=== PATIENT | male | born 1970 | race Caucasian/White ===

== ENCOUNTER 2019-11-05 13:32 | Outpatient (CLI) | payer OTHER, SELFPAY ==
--- NOTE | ~2019-11-05 | XR_ITS ---
XR hip LT min 2V 11/05/2019 14:12 Indication: Left hip pain Procedure: 2 views left hip Comparison: No prior studies for comparison. Findings: No acute fracture or traumatic malalignment. No significant soft tissue abnormality. No rad iopaque foreign bodies. No significant joint space narrowing. Impression: 1: No significant bone or joint abnormality. Reviewed, dictated and finalized at location B. OPERATIVE MANAGER Impression: 1: No significant bone or joint abnormality.
[2019-11-05 14:52] LABS: Add Urine Microscopic? YES; Amorphous Sediment Urine Few; Appearance Urine Clear (Clear); Bacteria Urine Trace /hpf; Bilirubin Urine Negative (Negative); Blood Urine Negative (Negative); Color Urine Yellow (Yellow); Glucose Urine UA Negative (Negative); Ketones Urine Negative (Negative); Leukocyte Esterase Ur Negative LEU/UL (Negative); Mucus Urine Few /lpf; Nitrate Urine Negative (Negative); Protein Urine Negative (Negative); RBC Urine 0-2 /hpf (0-2); Specific Grav Ur 1.025 (1.001-1.035); Squamous Epithelial Cell Urine Rare /hpf (Few); Urobilinogen Urine Negative mg/dL (<2.0); WBC Urine 0-3 /hpf
[2019-11-05 15:33] LABS: Prostate Specific Antigen 0.7 ng/mL (< OR = 4.0)
== END 2019-11-05 13:33 | disposition home or self-care (01) ==
PROVIDERS: PCP Internal Medicine Infectious Disease; Visit Provider Internal Medicine Infectious Disease
DX: N39.43 Post-void dribbling (principal); Z12.5 Encounter for screening for malignant neoplasm of prostate
CPT/HCPCS: 36415; 73502; 81001; 84153; 87086; G0103

== ENCOUNTER 2019-11-06 15:45 | Outpatient (CLI) | payer OTHER, SELFPAY ==
--- NOTE | ~2019-11-06 | US_ITS ---
EXAMINATION: US scrotum doppler EXAM DATE: 11/06/2019 16:40 INDICATION: Left testicular pain. Reportedly history of undescended testicle. TECHNIQUE: Multiple grayscale and Doppler images of the testicles and scrotum were obtained bilateral ly. There is no prior study for comparison. FINDINGS: Right testicle measures 4.9 x 5.1 x 2.4 cm and is morphologically normal. Low resistance Doppler eileen w confirmed. The epididymis is unremarkable. There is no hydrocele or varicocele. Left testicle measures 1.5 x 1.4 x 1.2 cm, which is small in size but otherwise morphologically ana lilia l. Low resistance Doppler flow confirmed. The epididymis is unremarkable. There is small to moderate -sized varicocele. IMPRESSION: 1. Small to moderate-sized left varicocele. 2. Small left testicle, common finding in patients with history of undescended testicle. Reviewed, dictated and finalized at location A. D DEVELOPMENT MANAGER
== END 2019-11-06 15:46 | disposition home or self-care (01) ==
LOC: ANHIMG 15:46
PROVIDERS: PCP Internal Medicine Infectious Disease
DX: N39.43 Post-void dribbling (principal); N50.82 Scrotal pain; I86.1 Scrotal varices
CPT/HCPCS: 76870; 93976

== ENCOUNTER 2019-11-20 17:32 | Outpatient (CLI) | payer OTHER, SELFPAY ==
--- NOTE | ~2019-11-20 | MR_ITS ---
EXAMINATION: MR lumbar spine [facility] EXAM DATE: 11/20/2019 18:27 INDICATION: Left-sided sciatica. TECHNIQUE: Multi-sequential, multiplanar MR images of the lumbar spine were obtained without contrast . Sagittal T1, T2, T2 fat saturation images. Axial T2 weighted images. There is no prior study for comparison. FINDINGS: Vertebral body and disc heights are well-maintained. The conus medullaris terminates at the L1/2 leve l and has normal signal intensity and morphology. There are no suspicious marrow signal abnormalitie s. Paraspinal soft tissue is unremarkable. Level by level evaluation: T12-L1: Disc does not extend beyond the endplate margin. Facet arthropathy: None. Neural foraminal stenosis: No stenosis. Central canal stenosis: No stenosis. L1-L2: Disc does not extend beyond the endplate margin. Facet arthropathy: Mild. Neural foraminal stenosis: No stenosis. Central canal stenosis: No stenosis. L2-L3: Disc does not extend beyond the endplate margin. Facet arthropathy: Mild. Neural foraminal stenosis: No stenosis. Central canal stenosis: No stenosis. L3-L4: There is a mild diffuse disc bulge. Facet arthropathy: Mild. Neural foraminal stenosis: Mild left. Central canal stenosis: No stenosis. L4-L5: There is a mild diffuse disc bulge. Facet arthropathy: Mild to moderate right, mild left. Neural foraminal stenosis: Mild to moderate right, mild left. Central canal stenosis: No stenosis. L5-S1: Disc does not extend beyond the endplate margin. Facet arthropathy: Mild. Neural foraminal stenosis: No stenosis. Central canal stenosis: No stenosis. IMPRESSION: 1. Mild lumbar spondylosis. Reviewed, dictated and finalized at location A. IMPRESSION: 1. Mild lumbar spondylosis.
== END 2019-11-20 17:33 | disposition home or self-care (01) ==
LOC: ANHIMG 17:34
PROVIDERS: PCP Internal Medicine Infectious Disease; Visit Provider Internal Medicine Infectious Disease
DX: M54.32 Sciatica, left side (principal); M47.896 Other spondylosis, lumbar region
CPT/HCPCS: 72148

== ENCOUNTER 2020-03-31 07:47 | Outpatient (CLI) | payer OTHER, SELFPAY ==
[2020-03-31 08:17] LABS: Basophils Percent Auto 0.3 % (0.2-1.2); Eosinophils Absolute Auto 0.1 K/mm3 (0-0.3); Eosinophils Percent Auto 1.6 % (0-4.4); Hematocrit 41.1 % (42.0-52.0); Hemoglobin 14.1 g/dL (14.0-18.0); Immature Granulocyte Absolute 0.03 K/mm3 (0.00-0.031); Immature Granulocyte Percent A 0.5 % (0-0.5); Lymphocytes Absolute Auto 2.64 K/mm3 (0.9-3.2); Lymphocytes Percent Auto 41.4 % (18.3-44.2); Mean Corpuscular HGB Conc 34.3 g/dl (32-36); Mean Corpuscular Hemoglobin 32.4 pg (26-34); Mean Corpuscular Volume 94.5 fl (80-100); Mean Platelet Volume 10.5 fl (7.4-10.4); Monocytes Absolute Auto 0.8 K/mm3 (0.1-0.6); Monocytes Percent Auto 12.4 % (2.6-8.5); Neutrophils Absolute Auto 2.8 K/mm3 (1.3-6.7); Neutrophils Percent Auto 43.8 % (45.5-73.1); Platelet Count Result 166 k/mm3 (150-375); Red Blood Count 4.35 M/mm3 (4.6-6.20); Red Cell Distribution Width 12.6 % (11.5-14.5); White Blood Count 6.4 K/mm3 (4.5-10.0)
[2020-03-31 08:30] LABS: Alanine Aminotransferase 26 U/L (4-50); Albumin Level 4.1 g/dL (3.5-5.1); Alkaline Phosphatase 86 U/L (38-126); Anion Gap 10.4 mmol/L (7-16); Aspartate Amino Transferase 28 U/L (17-59); Bilirubin,Total 0.3 mg/dL (0.2-1.3); Blood Urea Nitrogen 21 mg/dL (9-20); Calcium 8.8 mg/dL (8.4-10.2); Carbon Dioxide 26 mmol/L (22-30); Chloride 104 mmol/L (98-107); Cholesterol 176 mg/dL (0-200); Estimated Glomerular Filt Rate > 60; Glucose 112 mg/dL (75-110); HDL Direct 30 mg/dL; Potassium 4.4 mmol/L (3.4-5.0); Sodium 136 mmol/L (137-145); Triglycerides 194 mg/dL (<150)
[2020-03-31 08:40] LABS: LDL Cholesterol Direct 110 mg/dL
[2020-03-31 12:13] LABS: Hemoglobin A1C 5.7 % (<5.7)
[2020-04-03 22:10] LABS: Absolute CD4 Count 1692 cells/uL (490-1740); Lymphocytes, Absolute 2887 cells/uL (850-3900); Percent CD4 Cells 59 % (30-61)
[2020-04-08 16:55] LABS: HIV 1 RNA PCR <1.30 Log cps/mL; HIV 1 RNA PCR <20 Copies/mL
== END 2020-03-31 07:48 | disposition home or self-care (01) ==
PROVIDERS: PCP Internal Medicine Infectious Disease; Visit Provider Internal Medicine Infectious Disease
DX: E11.9 Type 2 diabetes mellitus without complications (principal); E78.2 Mixed hyperlipidemia; E03.9 Hypothyroidism, unspecified; Z21 Asymptomatic human immunodeficiency virus [HIV] infection status
CPT/HCPCS: 36415; 80053; 80061; 83036; 84443; 85025; 86361; 87536

== ENCOUNTER 2020-09-04 09:52 | Outpatient (CLI) | payer OTHER, SELFPAY ==
[2020-09-04 10:42] LABS: Basophils Percent Auto 0.2 % (0.2-1.2); Eosinophils Absolute Auto 0.1 K/mm3 (0-0.3); Eosinophils Percent Auto 0.7 % (0-4.4); Hematocrit 43.1 % (42.0-52.0); Hemoglobin 14.8 g/dL (14.0-18.0); Immature Granulocyte Absolute 0.06 K/mm3 (0.00-0.031); Immature Granulocyte Percent A 0.7 % (0-0.5); Lymphocytes Absolute Auto 3.85 K/mm3 (0.9-3.2); Lymphocytes Percent Auto 43.3 % (18.3-44.2); Mean Corpuscular HGB Conc 34.3 g/dl (32-36); Mean Corpuscular Hemoglobin 32.4 pg (26-34); Mean Corpuscular Volume 94.3 fl (80-100); Mean Platelet Volume 10.4 fl (7.4-10.4); Monocytes Percent Auto 11.7 % (2.6-8.5); Neutrophils Absolute Auto 3.9 K/mm3 (1.3-6.7); Neutrophils Percent Auto 43.4 % (45.5-73.1); Platelet Count Result 177 k/mm3 (150-375); Red Blood Count 4.57 M/mm3 (4.6-6.20); Red Cell Distribution Width 12.7 % (11.5-14.5); White Blood Count 8.9 K/mm3 (4.5-10.0)
[2020-09-04 10:53] LABS: Hemoglobin A1C 5.9 % (<5.7)
[2020-09-04 10:59] LABS: Alanine Aminotransferase 49 U/L (4-50); Albumin Level 4.2 g/dL (3.5-5.1); Alkaline Phosphatase 78 U/L (38-126); Anion Gap 6 mmol/L (8-16); Aspartate Amino Transferase 35 U/L (17-59); Bilirubin,Total 0.6 mg/dL (0.2-1.3); Blood Urea Nitrogen 21 mg/dL (9-20); Calcium 8.9 mg/dL (8.4-10.2); Carbon Dioxide 27 mmol/L (22-30); Chloride 104 mmol/L (98-107); Cholesterol 222 mg/dL (0-200); Estimated Glomerular Filt Rate > 60; Glucose 105 mg/dL (75-110); HDL Direct 35 mg/dL; Potassium 4.4 mmol/L (3.4-5.0); Sodium 137 mmol/L (137-145); Triglycerides 177 mg/dL (<150)
[2020-09-04 11:11] LABS: LDL Cholesterol Direct 159 mg/dL
[2020-09-04 11:40] LABS: HIV 1/2 Ab P24 Ag 163
[2020-09-04 11:42] LABS: HIV 1/2 Ab P24 Ag Result Reactive (Negative)
[2020-09-04 11:59] LABS: Creatinine Urine 74.4 mg/dL
[2020-09-04 13:07] LABS: MALB Creatinine Ratio < 8.1 mg/g (0-30); Microalbumin Urine Random < 6.0 mg/L (0-16.7)
[2020-09-06 17:38] LABS: HIV 1 2 Ag Ab 4th Gen w Rflxs Reactive (Non-reactive); HIV 1 Ab Chg Test Yes; HIV 1 Antibody Positive (Negative); HIV 2 Ab Chg Test Yes; HIV 2 Antibody Negative (Negative)
[2020-09-09 11:57] LABS: Absolute CD4 Count 2467 cells/uL (490-1740); Lymphocytes, Absolute 3935 cells/uL (850-3900); Percent CD4 Cells 63 % (30-61)
[2020-09-10 11:50] LABS: Testosterone Free 81.6 pg/mL (35.0-155.0); Testosterone Total 486 ng/dL (250-1100)
== END 2020-09-04 09:53 | disposition home or self-care (01) ==
PROVIDERS: PCP Internal Medicine Infectious Disease; Visit Provider Internal Medicine Infectious Disease
DX: E11.9 Type 2 diabetes mellitus without complications (principal); E78.2 Mixed hyperlipidemia; Z00.00 Encounter for general adult medical examination without abnormal findings
CPT/HCPCS: 36415; 80053; 80061; 82043; 83036; 84402; 84403; 84443; 85025; 86361; 86701; 86702; 86703; 87389; G0432

== ENCOUNTER 2024-04-02 14:33 | Outpatient (CLI) | payer BC, SELFPAY ==
--- NOTE | ~2024-04-02 | MR_ITS ---
MRI of the cervical spine Clinical History: Radiculopathy Technique: Axial T2-weighted and gradient images, and sagittal T1-weighted, T2-weighted, and STIR robert ges were acquired. Findings: There is no fracture or subluxation of the cervical spine. Vertebral bodies maintain normal height and alignment. No bone marrow signal abnormality seen. At C2-C3, there is no significant disc bulge or herniation. No spinal canal stenosis, cord compressio n, or neural foraminal narrowing. C3-C4, there is minimal disc osteophyte complex. No spinal canal stenosis, cord compression, or neura l foraminal narrowing. At C4-C5, there is minimal disc osteophyte complex. No spinal canal stenosis, cord compression, or ne ural foraminal narrowing. At C5-C6, there is minimal disc osteophyte complex. No spinal canal stenosis, cord compression, or ne ural foraminal narrowing. At C6-C7, there is no disc bulge or herniation. No spinal canal stenosis, cord compression, or neural foraminal narrowing. No abnormal signal seen in the spinal cord. Paravertebral soft tissues are unremarkable. No preverteb ral soft tissue swelling. Impression: Minimal degenerative spondylitic changes, as above. Reviewed, dictated and finalized at location . Impression: Minimal degenerative spondylitic changes, as above.
--- NOTE | ~2024-04-02 | MR_ITS ---
MRI of the lumbar spine Clinical History: Back pain Technique: Axial T2-weighted images, and sagittal T1-weighted, T2-weighted, and T2 fat-sat images wer e acquired. COMPARISON: 11/20/2019 Findings: There is no fracture or subluxation of the lumbar spine. Vertebral bodies maintain normal h eight and alignment. No bone marrow signal abnormality seen. At L1-L2, there is no disc bulge or herniation. There is moderate facet arthropathy. No central canal stenosis or neural foraminal narrowing. At L2-L3, there is minimal disc bulge with mild to moderate facet arthropathy. No central canal steno sis or neural foraminal narrowing. L3-L4, there is minimal disc bulge with moderate facet arthropathy. No central canal stenosis. There is mild to moderate right neural foraminal narrowing. Left neural foramen preserved. At L4-L5, there is minimal disc bulge with mild to moderate facet arthropathy. No central canal steno sis. There is mild to moderate bilateral neural foraminal narrowing. At L5-S1, there is no disc bulge or herniation. There is mild to moderate facet arthropathy. No centr al canal stenosis or neural foraminal narrowing. Paravertebral soft tissues are unremarkable. Impression: Mild degenerative spondylosis overall, as detailed above. Reviewed, dictated and finalized at location . Impression: Mild degenerative spondylosis overall, as detailed above.
== END 2024-04-02 14:34 ==
LOC: GOSHIMG 14:34
PROVIDERS: PCP Internal Medicine Infectious Disease; Visit Provider Internal Medicine Infectious Disease
DX: G95.9 Disease of spinal cord, unspecified (principal); M54.12 Radiculopathy, cervical region
CPT/HCPCS: 72141; 72148

== ENCOUNTER 2025-01-10 01:26 | Day surgery (SDC) | payer BC, SELFPAY ==
[2024-12-26 13:37] VITALS: BMI 35.2
--- OUTSIDE RECORDS SUMMARY | 2025-01-10 01:30 | XMS_ITS | Encounter Summary ---
Author Organization [facility] Address [address] [place] [address] Phone Care Team Providers Care Security Representative Name Role Phone Felton Larry Abbott MD Primary Care Provider [phone] Faheem Saxena DO Unavailable [phone] Samuel Up DPM, Bryce Unavailable [phone] Bianca Bartholomew MD Unavailable [phone] Encounter Details Date Type Department Care Team (Late st Contact Info) Description 06/11/2021 Orders Only [facility] [address] [place] [address] Scanning, Provider Social History Tobacco Use Types Packs/Day Years Used Date Smoking Tobacco: Every Day Cigarettes 1.5 30 Smokeless Tobacco: Former Comments:Smoking History Pac ks/day: Pack and a half a day. Alcohol Use Standard Drinks/Week Comments No 0 (1 standard drink = 0.6 oz pur e alcohol) PHQ-2 Answer Date Recorded PHQ-2 Total Score (If total score is 3 or more points, staff should administer the PHQ-9) 0 04/27/2021 Sex and Gender Information Value Date Recorded Sex Assigned at Not on file Legal Sex Male 4:45 PM RFID ANALYST Gender Identity Male 04/07/2021 11:57 AM CDT Sexual Orientation Pedraza 08/31/2020 11 :52 AM RFID ANALYST documented as of this encounter Plan of Treatment Not on file documented as of this encounter Procedures Procedure Name Priority Date/Time Associated Diagnosis Comments SCAN - RADIOLOGY/IMAGING 06/11/2021 documented in this encounter Results * SCAN - RADIOLOGY/IMAGING (06/11/2021) Anatomical Region Laterality Modality Other us Provider Scanning Final Result documented in this encounter Visit Diagnoses Not on filedocumented in this encounter Additional Health Concerns Infection Onset Date Last Indicated Resolved Time COVID: Suspected 07/12/2024 07/12/2024 07/12/2024 10:25 AM RFID ANALYST documented as of this encounter Care Teams Security Representative Relationship Specialty Start Date End Date Larry Ya MD [address] [place] [address] PCP - General 12/03/16 Faheem Saxena DO [address] [place] [address] Consulting Physician Gastroenterology 02/26/19 Bryce Baker Jr., DPMagui [address] [place] [address] Referring Physician 02/26/19 Bianca Bartholomew MD [id number] [address] Consulting Physician Critical Care Med 04/03/20 documented as of this encounter
--- OUTSIDE RECORDS SUMMARY | 2025-01-10 01:30 | XMS_ITS | Referral Summary ---
Author Organization [facility] Address [address] [place] [address] Care Team Providers Care Shipping Assistant Name Role Phone Larry Ya MD Primary Care Provider [phone] Faheem Saxena DO Unavailable [phone] Up, SABRINA, Bryce Unavailable [phone] Bianca Bartholomew MD Unavailable [phone] Encounters Date Type Department Care Team Description 01/01/2025 Telephone [facility] [address] [place] [phone] Larry Ya MD Med Refill 11/16/2024 Results Follow-Up [facility] [address] [facility] [address] [place] [phone] Larry Ya MD Nicotine dependence, cigarettes, uncomplicated 11/12/2024 4:09 PM CDT - 11/12/2024 11:59 PM CDT Hospital Encounter [facility] [address] [place] [address] Nicotine dependence, cigarettes, uncomplicated Discharge Disposition: Discharge to home or self care 11/09/2024 Telephone [facility] [address] [place] [address] Cathi Rodriguez RN 10/18/2024 9:30 AM LEAD CASHIER Office Visit [facility] [place] [facility] [address] [place] [phone] Larry Ya MD Colon cancer screening (Primary Dx); Type 2 diabetes mellitus without complication, without long-term current use of insulin (HCC); Cough, unspecified type; Gastroesophageal reflux disease, unspecified whether esophagitis present; Nicotine dependence, cigarettes, uncomplicated; Prostate cancer screening; Routine physical examination; HIV positive, asymptomatic (HCC) from Last 3 Months Allergies Active Allergy Reactions Criticality Noted Date Comments Delight Oil Unknown Cefaclor Rash Reaction: Rash, , Reaction: rash, , , , , Clarithromycin Shortness of breath,Other (See comments),Rash Medium 09/27/2013 Reaction: Trouble Breathing, , Reaction: Trouble breathing, , Reaction: Anaphylaxis, , , , Clindamycin Rash Reaction: rash, , Reaction: rash, , , , Codeine Hives Medium 07/19/2024 Erythromycin Shortness of breath,Other (See comments),Anaphylaxis High 09/27/2013 Reaction: Trouble Breathing, , Reaction: trouble breathing, , Reaction: Anaphylaxis, , , , Latex Rash Reaction: rash, , , Reaction: Rash, , , Loratadine Tetracycline Rash,Other (See comments) Reaction: Rash, , Reaction: rash, , Reaction: Rash, , , Tetracyclines Medications fluticasone (FLONASE) 50 mcg/actuation nasal spray USE 1 SPRAY INTO EACH NOSTRIL TWICE A DAY 16 spray 3 014 Active cetirizine (ZyrTEC) 10 mg tablet take 1 tablet (10MG) by oral route every day 0 012 Active cyanocobalamin (vitamin B-12) 1,000 mcg tablet take 1 by Oral route one daily 0 012 Active b complex vitamins (VITAMINS B COMPLEX) capsule take 1 by Oral route once 0 0 017 Active melatonin tablet Take by mouth Active ascorbic acid (VITAMIN C) 1,000 mg tablet Take 1 tablet (1,000 mg total) by mouth daily Active magnesium oxide 200 mg magnesium tablet Active ferrous sulfate ER 324 mg (65 mg iron) EC tablet Active omeprazole (PriLOSEC) 20 mg capsule Take 1 capsule (20 mg total) by mouth daily 90 capsule Active emtricitabine-ten ofovir disoproxil fumerate (TRUVADA) 200-300 mg per tablet Take 1 tablet by mouth daily 30 tablet 11 Active celecoxib (CeleBREX) 200 mg capsule TAKE 1 CAPSULE BY MOUTH EVERY DAY 30 capsule Active ondansetron (ZOFRAN) 4 mg tablet Take 1 tablet (4 mg total) by mouth 3 (three) times a day as needed for nausea or vomiting 21 tablet Active cyclobenzaprine (FLEXERIL) 10 mg tablet Take 1 po qd prn 90 tablet 1 Active sertraline (ZOLOFT) 100 mg tablet TAKE ONE TABLET BY MOUTH TWICE A DAY 180 tablet 1 Active albuterol HFA (PROVENTIL HFA,VENTOLIN HFA,PROAIR HFA) 90 mcg/actuation inhalerIndication s:Upper respiratory tract infection, unspecified type,Acute cough Inhale 2 puffs 4 (four) times a day 1 each Active Additional Information Patient taking differently:2 puff inhalation4 times daily PRN, Reported on 10/18/2024 ammonium lactate (LAC-HYDRIN) 12 % lotionIndications :Dry Skin Apply 1-2 times daily to groin as needed. 225 g Active Isentress 400 mg tablet TAKE 1 TABLET (400 MG TOTAL) BY MOUTH 2 TIMES A DAY 60 tablet 2 Active ipratropium (ATROVENT) 21 mcg (0.03 %) nasal spray 2 SPRAY INTRANASALLY TWICE A DAY FOR POSTERIOR RHINORRHEA FOR 1 MONTH ADMINISTER INTO EACH NOSTRIL Active semaglutide (Ozempic) 0.25 mg or 0.5 mg (2 mg/3 mL) pen injector injectionIndicati ons:type 2 diabetes mellitus Inject 0.5 mg under the skin every 7 days 3 mL 1 025 Active busPIRone (BUSPAR) 30 mg tabletIndications :Anxiety TAKE ONE TABLET BY MOUTH TWICE A DAY 180 tablet 1 025 Active liothyronine (CYTOMEL) 25 mcg tabletIndications :Acquired hypothyroidism TAKE ONE TABLET BY MOUTH EVERY DAY 90 tablet 025 Active levothyroxine (Synthroid) 25 mcg tabletIndications :Acquired hypothyroidism Take 1 tablet (25 mcg total) by mouth daily 90 tablet 1 025 Active levothyroxine (Synthroid) 25 mcg tabletIndications :Acquired hypothyroidism Take 1 tablet (25 mcg total) by mouth daily 90 tablet 1 024 2024 Discontinued(R eorder) liothyronine (CYTOMEL) 25 mcg tablet TAKE ONE TABLET BY MOUTH ONCE DAILY 90 tablet 024 2024 Discontinued Active Problems Problem Noted Date Diagnosed Date Routine physical examination 10/18/2024 Assessment & Plan (10/18/2024 10:35 AM LEAD CASHIER): IMMUNIZATIONS WERE REVIEWED EYE EXAM AND DENTAL UPTODATE TOBACCO ABUSE LOWE DOSE LUNG CT ORDERED DM TYPE 2 GOAL HBAIC IS UNDER 6.5 PERCENT INCREASE OZEMPIC TO 0.5 MG ONCE A WEEK PRIMARY HYPOTRHYORIDISM : NL TSH ASYMTPOMATIC HIV NL CD 4 COUND AND VIRAL LOAD UNDETECTABLE RECTLA EXAM GUAIAIC NEG Acute bronchitis and bronchiolitis 08/15/2024 Assessment & Plan (08/15/2024 7:31 PM LEAD CASHIER): Rsv neg Flu and coviod neg Cxr is neg except for possible acuter bornchitis sinus x ray neg Start tapring dosage of starting at 20 mg po Qday prednsione Penile rash 07/24/2024 Assessment & Plan (07/24/2024 4:54 PM LEAD CASHIER): PAINFUL DDX INCULDE PRIMARY HERPES SIMPLEX ALLERGIC REACTION FROM CODIENE OR LEVAQUIN SWABS WERE RAKEN TODAY VALTREX 1 GM PO TID FOR 7 DAYS TOPICAL NYSTATIN POWEDER FOR THE GROIN Acute cough 07/12/2024 Assessment & Plan (07/12/2024 3:12 PM LEAD CASHIER): Exam is NL Acute bronchitis is suspected Do tussin with codiene one tsp po tid for 7 days 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 FAILED PT 3. FAILED NSAIDS ON FLEXERIL PRN DECREASED FORENSIC NURSE IN BOTH HANDS NUMBNESS OF THE LEFT ARM ARRANGE MRI OF THE C SPINE Lumbar radiculopathy, chronic 03/29/2024 Assessment & Plan (03/29/2024 1:21 PM CDT): WITH GAIT ISSUES S/P FALL FAILED NSAIDS ARRANGEM RI OF THE L SPINE WITHOUT CONTRAST COVID-19 virus detected 08/08/2020 Routine physical examination 08/12/2017 Assessment & Plan (04/03/2020 3:11 PM CDT): Immunizations were reviewed / meds were reviewed / blood work was discussed / skin was assessed / rectal exam done/ hbaic is good / await results of viral load and cd 4 count / Type 2 diabetes mellitus wit hout complication, without long-term current use of insulin 04/12/2017 Assessment & Plan (04/11/2024 4:38 PM CDT): NL DILATED EYE EXAM NL FOOT EXAM NL MONO FILAMENT TEST GOAL HBAIC IS UNDER 7 PERCENT URINE FOR MICROALBUMIN NEXT VISIT HIV positive, asymptomatic 04/12/2017 Assessment & Plan (04/11/2024 4:38 PM CDT): HIV VIRAL LOAD UNDETECTABLE NL CD 4 COUND ABOVE 500 IMMUNIZATIONS REVIEWED AND UPDATED Trigger finger of left hand 04/12/2017 Acquired hypothyroidism 04/12/2017 Assessment & Plan (04/11/2024 4:39 PM CDT): NL TSH NO CHANGES IN SYNTHROID MADE Smokes tobacco daily 05/16/2015 Overview (12/09/2016): Current every day smoker Adiposity 01/19/2014 Overview (12/08/2016): OBESITY NOS Obstructive sleep apnea syndrome 01/19/2014 Overview (12/08/2016): SONU (obstructive sleep apnea) Generalized anxiety disorder 01/19/2014 Overview (12/08/2016): GENERALIZED ANXIETY DIS Depression 01/19/2014 Overview (12/10/2016): Depression Atopic rhinitis 01/19/2014 Overview (12/10/2016): ALLERGIC RHINITIS NOS Multiple-type hyperlipidemia 01/19/2014 Overview (12/10/2016): MIXED HYPERLIPIDEMIA Assessment & Plan (04/11/2024 4:37 PM CDT): FLP AND LDL REVIEWED GOAL LDL IS UNDER 100 FOR SECONDARY PREVNETION Carpal tunnel syndrome 01/19/2014 Overview (12/10/2016): CARPAL TUNNEL SYNDROME Snoring 01/19/2014 Overview (12/10/2016): Snoring Anxiety 01/19/2014 Overview (12/10/2016): Anxiety Gastroesophageal reflux disease 01/19/2014 Overview (12/10/2016): GERD (gastroesophageal reflux disease) Nicotine dependence 12/17/2011 Immunizations Immunization Administration Dates Next Due Influenza, Quadrivalent, Emperatriz l Culture-based MDCK, Preservative Free, Antibiotic Free, Intramuscular 06/13/2022,06/29/2021 Influenza, Quadrivalent, Spl it, Intramuscular 08/12/2017 Influenza, Quadrivalent, Spl it, Preservative Free, Intramuscular 06/01/2023 Influenza, Split 07/24/2013,05/19/2010 Influenza, Trivalent, Cell C ulture-based MDCK, Preservative Free, Antibiotic Free, Intramuscular 05/28/2024,06/13/2022,06/29/2021 Influenza, Trivalent, IM (MDV) 05/20/2016,2013 Influenza, Trivalent, Preser vative Free, Intramuscular 09/01/2015 Influenza, Unspecified 06/05/2020 MMR 10/03/2018 PPD TEST 08/20/2020,12/15/2011 Pfizer SARS-CoV-2 Monovalent Vaccination (12+ Yrs) PURPLE 08/21/2021,10/03/2020 Pfizer Sars-Cov-2 Bivalent V accination (12+ YRS) 05/28/2024 Pneumococcal Polysaccharide PPV23 12/15/2011 Td, adsorbed 08/20/2020 Tdap 11/09/2021,05/20/2010 Social History Tobacco Use Types Packs/Day Years [...] more points, staff should administer the PHQ-9) 1 10/18/2024 Personal Safety Answer Date Recorded Have you ever been in or are you currently in a harmful physical or emotional relationship or is someone making you feel afraid or unsafe? Denies 04/05/2024 Sex and Gender Information Value Date Recorded Sex Assigned at Not on file Legal Sex Male 4:45 PM LEAD CASHIER Gender Identity Male 04/07/2021 11:57 AM CDT Sexual Orientation Pedraza 08/31/2020 11 :52 AM LEAD CASHIER Last Filed Vital Signs Vital Sign Reading Time Taken Comments Blood Pressure 128/78 10/18/2024 9:49 AM LEAD CASHIER Pulse 78 10/18/2024 9:49 AM LEAD CASHIER Temperature 36.2 C (97.1 F) 10/18/2024 9:49 AM LEAD CASHIER Respiratory Rate 16 10/18/2024 9:49 AM LEAD CASHIER Oxygen Saturation 96% 10/18/2024 9:49 AM LEAD CASHIER Inhaled Oxygen Concentration - - Weight 100.7 kg (222 lb) 11/12/2024 4:54 PM CDT Height 167.6 cm (5' 6 ) 11/12/2024 4:54 PM CDT Body Mass Index 35.83 11/12/2024 4:54 PM CDT Plan of Treatment Not on file Procedures Procedure Name Priority Date/Time Associated Diagnosis Comments CT LUNG CANCER SCREENING Schedule Routine, Read Routine (OP Routine) 11/12/2024 4:53 PM CDT Nicotine dependence, cigarettes, uncomplicated COMPREHENSIVE METABOLIC PANEL Routine 10/10/2024 9:35 AM LEAD CASHIER Type 2 diabetes mellitus without complication, without long-term current use of insulin (HCC) HEMOGLOBIN A1C Routine 10/10/2024 9:35 AM LEAD CASHIER Type 2 diabetes mellitus without complication, without long-term current use of insulin (HCC) LIPID PANEL Routine 10/10/2024 9:35 AM LEAD CASHIER Multiple-type hyperlipidemia ALBUMIN CREATININE RATIO, URINE Routine 05/16/2023 9:19 AM CDT Type 2 diabetes mellitus without complication, without long-term current use of insulin (HCC) PSA SCREEN Routine 11/15/2022 8:32 AM CDT Routine physical examination Prostate cancer screening HM DIABETES EYE EXAM Routine 09/12/2019 9:28 AM LEAD CASHIER from Last 3 Months or Most Recently Relevant to Health Maintenance Results * CT Lung Cancer Screening (11/12/2024 4:53 PM CDT) Anatomical Region Laterality Modality Chest N/A Computed Tomogra phy 11/15/2024 8:17 AM CDT Narrative 11/15/2024 8:25 AM CDT EXAM DESCRIPTION: CT LUNG CANCER SCREENING REASON FOR STUDY: Screening CT of the chest in a current smoker with a 45 pack year smoking history. Additional history: None. TECHNIQUE: Low dose CT scan of the chest was performed without intravenous contrast using helical scanning technique. The exam extends from the lung apices through the lung bases. Automatic exposure control was used as a dose optimization technique. NOTE: This study was performed for the specific purposes of lung cancer screening and is not an alternative to diagnostic chest CT. The sensitivity for detection of solid visceral lesions is diminished without the use of intravenous contrast. RADIATION DOSE: CT dose index volume (CTDIvol) = 2.36 mGy COMPARISON: CT chest 06/11/2021 FINDINGS: SMOKING RELATED LUNG DISEASE: Minimal pulmonary emphysema. LUNG NODULES: Noncalcified 3 mm nodule in the left lower lobe (image 153) may be within a subsegmental airway but is unchanged from 2020. PLEURAE: No pneumothorax or pleural effusion. MEDIASTINUM/PRETTY: No mediastinal or hilar lymphadenopathy within the limitations of a noncontrast exam. HEART: Heart size is normal with no pericardial effusion. CORONARY ARTERY CALCIFICATION: Mild VASCULATURE: No thoracic aortic aneurysm. AXILLAE: No lymphadenopathy. CHEST WALL: No masses. No subcutaneous air. HARDWARE/LINES/TUBES: None. UPPER ABDOMEN: No significant abnormality. MUSCULOSKELETAL: Moderate thoracic spondylosis. IMPRESSION: Noncalcified 3 mm nodule in the left lower lobe may be within a subsegmental airway but is unchanged from 2020. Minimal pulmonary emphysema. Lung-RADS category 2: Benign appearance or behavior. Recommendation: Low dose Screening CT of chest in 12 months. THIS IS AN ELECTRONICALLY VERIFIED FINAL REPORT 11/15/2024 8:25 AM - Electronically signed by Aj Otto M.D. LB: USMAN Report ID: [id number] Reading Location: [place] [address] Procedure Note Aj Otto MD - 11/15/2024 EXAM DESCRIPTION: CT LUNG CANCER SCREENING REASON FOR STUDY: Screening CT of the chest in a current smoker with a45 pack year smoking history. Additional history: None. TECHNIQUE: Low dose CT scan of the chest was performed without intravenous contrast using helical scanning technique. The exam extends from the lung apices through the lung bases. Automatic exposure control was used as adose optimization technique. NOTE: This study was performed for the specific purposes of lung cancer screening and is not an alternative to diagnostic chest CT. Thesensitivity for detection of solid visceral lesions is diminished without the use of intravenous contrast. RADIATION DOSE: CT dose index volume (CTDIvol) = 2.36 mGy COMPARISON: CT chest 06/11/2021 FINDINGS: SMOKING RELATED LUNG DISEASE: Minimal pulmonary emphysema. LUNG NODULES: Noncalcified 3 mm nodule in the left lower lobe ([id number]) may be within a subsegmental airway but is unchanged from 202. PLEURAE: No pneumothorax or pleural effusion. MEDIASTINUM/PRETTY: No mediastinal or hilar lymphadenopathy within the limitations of a noncontrast exam. HEART: Heart size is normal with no pericardial effusion. CORONARY ARTERY CALCIFICATION: Mild VASCULATURE: No thoracic aortic aneurysm. AXILLAE: No lymphadenopathy. CHEST WALL: No masses. No subcutaneous air. HARDWARE/LINES/TUBES: None. UPPER ABDOMEN: No significant abnormality. MUSCULOSKELETAL: Moderate thoracic spondylosis. IMPRESSION: Noncalcified 3 mm nodule in the left lower lobe may be within asubsegmental airway but is unchanged from 2020. Minimal pulmonary emphysema. Lung-RADS category 2: Benign appearance or behavior. Recommendation: Low dose Screening CT of chest in 12 months. THIS IS AN ELECTRONICALLY VERIFIED FINAL REPORT 11/15/2024 8:25 AM - Electronically signed by Aj Otto M.D. LB: LB Report ID: [id number] Reading Location: [place] [address] Larry Ya MD IMG CT PROCEDURES Final Re sult * (ABNORMAL) Hemoglobin A1c (10/10/2024 9:35 AM LEAD CASHIER) Hgb A1C 6.0(H) <5.7 % of total Hgb [facility] Comment: For someone without known diabetes, a hemoglobin A1c value between 5.7% and 6.4% is consistent with prediabetes and should be confirmed with a follow-up test. For someone with known diabetes, a value <7% indicates that their diabetes is well controlled. A1c targets should be individualized based on duration of diabetes, age, comorbid conditions, and other considerations. This assay result is consistent with an increased risk of diabetes. Currently, no consensus exists regarding use of hemoglobin A1c for diagnosis of diabetes for children. Blood 10/10/2024 9:35 AM LEAD CASHIER 10/10/2024 9:36 AM LEAD CASHIER Narrative [facility] - 10/12/2024 8:21 AM LEAD CASHIER FASTING:YES FASTING: YES Larry Ya MD LAB BLOOD ORDERABLES Final Result [facility] [address] [place] [address] * (ABNORMAL) Lipid panel (10/10/2024 9:35 AM LEAD CASHIER) Cholesterol 217(H) <200 mg/dL [facility] HDL 36(L) > OR = 40 mg/dL [facility] Triglycerides 134 <150 mg/dL [facility] LDL 155(H) mg/dL (calc) [facility] Comment: Reference range: <100 Desirable range <100 mg/dL for primary prevention; <70 mg/dL for patients with CHD or diabetic patients with > or = 2 CHD risk factors. LDL-C is now calculated using the Jorge calculation, which is a validated novel method providing better accuracy than the Friedewald equation in the estimation of LDL-C. Casper SS et al. FRANCISCA. 2013;310(19): 7053-7926 (http://education.Ginio.com/faq/PQZ782) Chol/HDL ratio 6.0(H) <5.0 (calc) [facility] Non-HDL, (LDL+VLDL) 181(H) <130 mg/dL (calc) [facility] Comment: For patients with diabetes plus 1 major ASCVD risk factor, treating to a non-HDL-C goal of <100 mg/dL (LDL-C of <70 mg/dL) is considered a therapeutic option. Blood 10/10/2024 9:35 AM LEAD CASHIER 10/10/2024 9:36 AM LEAD CASHIER Narrative [facility] - 10/12/2024 8:21 AM LEAD CASHIER FASTING:YES FASTING: YES Larry Ya MD LAB BLOOD ORDERABLES Final Result [facility] [address] [place] [phone] * (ABNORMAL) Comprehensive metabolic panel (10/10/2024 9:35 AM LEAD CASHIER) Glucose 111(H) 65 - 99 mg/dL [facility] Comment: Fasting reference interval For someone without known diabetes, a glucose value between 100 and 125 mg/dL is consistent with prediabetes and should be confirmed with a follow-up test. BUN 19 7 - 25 mg/dL [facility] Creatinine 1.05 0.70 - 1.30 mg/dL [facility] eGFR 84 > OR = 60 mL/min/1.7 3m2 [facility] BUN/creat ratio SEE NOTE: 6 - 22 (calc) [facility] Comment: Not Reported: BUN and Creatinine are within reference range. Sodium 140 135 - 146 mmol/L [facility] Potassium, pl 4.4 3.5 - 5.3 mmol/L [facility] Chloride 104 98 - 110 mmol/L [facility] CO2 30 20 - 32 mmol/L [facility] Calcium 8.9 8.6 - 10.3 mg/dL [facility] Protein, sr 6.7 6.1 - 8.1 g/dL [facility] Albumin 4.5 3.6 - 5.1 g/dL [facility] GLOBULIN 2.2 1.9 - 3.7 g/dL (calc) [facility] Alb/glob ratio 2.0 1.0 - 2.5 (calc) [facility] Bilirubin, total 0.5 0.2 - 1.2 mg/dL [facility] Alk phos 78 35 - 144 U/L [facility] AST 23 10 - 35 U/L [facility] ALT (SGPT) 31 9 - 46 U/L [facility] Blood 10/10/2024 9:35 AM LEAD CASHIER 10/10/2024 9:36 AM LEAD CASHIER Narrative [facility] - 10/12/2024 8:21 AM LEAD CASHIER FASTING:YES FASTING: YES Larry Ya MD LAB BLOOD ORDERABLES Final Result [facility] [address] [place] [address] * Albumin Creatinine Ratio, Urine (05/16/2023 9:19 AM CDT) Creatinine, ur 110 20 - 320 mg/dL [facility] Microalbumin, ur <0.2 See Note: mg/dL [facility] Comment: Reference Range: Reference Range Not established Microalbumin/creat ratio NOTE <30 mcg/mg creat [facility] Comment: NOTE: The urine albumin value is less than 0.2 mg/dL therefore we are unable to calculate excretion and/or creatinine ratio. The ADA defines abnormalities in albumin excretion as follows: Albuminuria Category Result (mcg/mg creatinine) Normal to Mildly increased <30 Moderately increased 30-299 Severely increased > OR = 300 The ADA recommends that at least two of three specimens collected within a 3-6 month period be abnormal before considering a patient to be within a diagnostic category. Urine 05/16/2023 9:19 AM CDT 05/16/2023 9:20 AM CDT Narrative [facility] - 05/18/2023 1:37 PM CDT FASTING:YES FASTING: YES Larry Ya MD LAB URINE ORDERABLES Final Result [facility] [address] [place] [address] * PSA screen (11/15/2022 8:32 AM CDT) Pathologist [facility] PSA 0.53 < OR = 4.00 ng/mL [facility] Comment: The total PSA value from this assay system is standardized against the WHO standard. The test result will be approximately 20% lower when compared to the equimolar-standardized total PSA (Tae Yolanda). Comparison of serial PSA results should be interpreted with this fact in mind. This test was performed using the Siemens chemiluminescent method. Values obtained from different assay methods cannot be used interchangeably. PSA levels, regardless of value, should not be interpreted as absolute evidence of the presence or absence of disease. Blood 11/15/2022 8:32 AM CDT 11/15/2022 8:34 AM CDT Narrative [facility] - 11/16/2022 9:44 PM CDT FASTING:YES FASTING: YES Larry Ya MD LAB BLOOD ORDERABLES Final Result [facility] [address] [phone] * DIABETES EYE EXAM (09/12/2019 9:28 AM LEAD CASHIER) SCRIBED DIABETIC DILATED EYE EXAM Normal Historical Provider HEALTH MAINTENANCE Final Result from Last 3 Months or Most Recently Relevant to Health Maintenance Insurance [facility] PPO PPO ANTHEM ACCESS CHOICE WORKERS COMPENSATION GENERIC Member Subscriber Plan / Payer (Ef fective 2023-Present) Name:Luis Adrian Relation to Subscriber:Self Name:Luis Adrian Payer ID:[id number] Group ID:Not on file Type:WORKERS COMPENSATION Address: [place] [id number] Care Teams Shipping Assistant Relationship Specialty Start Date End Date Larry Ya MD [address] [place] [address] PCP - General 12/03/16 Faheem Saxena DO [address] [place] [address] Consulting Physician Gastroenterology 02/26/19 Bryce Baker Jr., DPM [address] [place] [address] Referring Physician 02/26/19 Bianca Bartholomew MD [address] [facility] [address] [place], [place] [id number] Consulting Physician Critical Care Med 04/03/20
--- OUTSIDE RECORDS SUMMARY | 2025-01-10 01:30 | XMS_ITS | Encounter Summary ---
Author Organization [facility] Address [address] [place] [address] Phone Care Team Providers Care Box Closing Machine Operator Name Role Phone Larry Ya MD Primary Care Provider [phone] Faheem Saxena DO Unavailable [phone] Samuel Up DPM, Gabriel Unavailable Bianca Bartholomew MD Unavailable Encounter Details Date Type Department Care Team (Late Contact Info) Description 11/15/2017 Orders Only [facility] [address] [place] [address] Larry Ya MD [address] [place] [id number] Social History Tobacco Use Types Packs/Day Years Used Date Smoking Tobacco: Every Day Smokeless Tobacco: Former Comments:Smoking History Pac ks/day: 1 Packs Alcohol Use Standard Drinks/Week Comments No 0 (1 standard drink = 0.6 oz pur e alcohol) Sex and Gender Information Value Date Recorded Sex Assigned at Not on file Legal Sex Male 4:45 PM TRUCK BODY BUILDER APPRENTICE Gender Identity Male 04/07/2021 11:57 AM CDT Sexual Orientation Pedraza 08/31/2020 11 :52 AM TRUCK BODY BUILDER APPRENTICE documented as of this encounter Plan of Treatment Not on file documented as of this encounter Procedures Procedure Name Priority Date/Time Associated Diagnosis Comments SCAN - LABS 11/15/2017 10:24 AM CDT documented in this encounter Results * SCAN - LABS (11/15/2017 10:24 AM CDT) Larry Ya MD Final Resu lt documented in this encounter Visit Diagnoses Not on filedocumented in this encounter Additional Health Concerns Infection Onset Date Last Indicated Resolved Time COVID: Suspected 06/19/2020 06/19/2020 07/03/2020 3:06 AM CDT COVID: Suspected 07/12/2024 07/12/2024 07/12/2024 10:25 AM TRUCK BODY BUILDER APPRENTICE documented as of this encounter Care Teams Box Closing Machine Operator Relationship Specialty Start Date End Date Larry Ya MD [address] [place] [address] PCP - General 12/03/16 Faheem Saxena DO [address] [place] [address] Consulting Physician Gastroenterology 02/26/19 Bryce Baker Jr., DPMagui [address] [place] [address] Referring Physician 02/26/19 Bianca Bartholomew MD [address] [facility] [address] [place], [place] [address] Consulting Physician Critical Care Med 04/03/20 documented as of this encounter
--- OUTSIDE RECORDS SUMMARY | 2025-01-10 01:30 | XMS_ITS | Encounter Summary ---
Author Organization [facility] Address [address] [place] [address] Phone Care Team Providers Care Guide Cruise Name Role Phone Felton Larry Abbott MD Primary Care Provider [phone] Faheem Saxena DO Unavailable [phone] Samuel Up DPM, Gabriel Unavailable [phone] Bianca Bartholomew MD Unavailable [phone] Encounter Details Date Type Department Care Team (Late st Contact Info) Description 09/04/2020 Orders Only [facility] [address] [place] [address] Scanning, Provider Social History Tobacco Use Types Packs/Day Years Used Date Smoking Tobacco: Every Day Smokeless Tobacco: Former Comments:Smoking History Pac ks/day: 1 Packs Alcohol Use Standard Drinks/Week Comments No 0 (1 standard drink = 0.6 oz pur e alcohol) Sex and Gender Information Value Date Recorded Sex Assigned at Not on file Legal Sex Male 4:45 PM SCREEN ROOM OPERATOR Gender Identity Male 04/07/2021 11:57 AM CDT Sexual Orientation Pedraza 08/31/2020 11 :52 AM SCREEN ROOM OPERATOR documented as of this encounter Plan of Treatment Not on file documented as of this encounter Procedures Procedure Name Priority Date/Time Associated Diagnosis Comments SCAN - LABS 09/04/2020 documented in this encounter Results * SCAN - LABS (09/04/2020) us Provider Scanning Final Result documented in this encounter Visit Diagnoses Not on filedocumented in this encounter Additional Health Concerns Infection Onset Date Last Indicated Resolved Time COVID: Suspected 07/12/2024 07/12/2024 07/12/2024 10:25 AM SCREEN ROOM OPERATOR documented as of this encounter Care Teams Guide Cruise Relationship Specialty Start Date End Date Larry Ya MD [address] [place] [address] PCP - General 12/03/16 Faheem Saxena DO [address] [place] [address] Consulting Physician Gastroenterology 02/26/19 Bryce Baker Jr., DPM [address] [place] [address] Referring Physician 02/26/19 Bianca Bartholomew MD [address] [address] Consulting Physician Critical Care Med 04/03/20 documented as of this encounter
--- OUTSIDE RECORDS SUMMARY | 2025-01-10 01:30 | XMS_ITS | Encounter Summary ---
Author Organization [facility] Address [address] [place] [address] Phone Care Team Providers Care Percolator Operator Name Role Phone Felton, Larry Abbott MD Primary Care Provider [phone] Faheem Saxena DO Unavailable [phone] Samuel Up DPM, Gabriel Unavailable [phone] Bianca Bartholomew MD Unavailable [phone] Encounter Details Date Type Department Care Team (Late st Contact Info) Description 02/25/2017 Orders Only [facility] [address] [place] [address] Salome Mcgarry LPN Social History Tobacco Use Types Packs/Day Years Used Date Smoking Tobacco: Former Cigarettes Q uit: 09/05/2015 Comments:Smoking History Pac ks/day: 1 Packs Alcohol Use Standard Drinks/Week Comments No 0 (1 standard drink = 0.6 oz pur e alcohol) Sex and Gender Information Value Date Recorded Sex Assigned at Not on file Legal Sex Male 4:45 PM GAS FITTER APPRENTICE Gender Identity Male 04/07/2021 11:57 AM CDT Sexual Orientation Pedraza 08/31/2020 11 :52 AM GAS FITTER APPRENTICE documented as of this encounter Ordered Prescriptions Prescription Sig Dispense Quantity Refills Last Filled Start Date End Date celecoxib (CeleBREX) 200 mg capsule Take 1 capsule (200 mg total) by mouth daily. 30 capsule 5 02/25/2017 7 documented in this encounter Plan of Treatment Not on file documented as of this encounter Visit Diagnoses Not on filedocumented in this encounter Discontinued Medications Medication Sig Discontinue Reason Start Date End Da te meloxicam (MOBIC) 7.5 mg tablet TAKE ONE TABLET BY MOUTH TWICE A DAY Therapy completed 08/15/2014 02/25/2017 documented as of this encounter Additional Health Concerns Infection Onset Date Last Indicated Resolved Time COVID: Suspected 06/19/2020 06/19/2020 07/03/2020 3:06 AM CDT COVID: Suspected 07/12/2024 07/12/2024 07/12/2024 10:25 AM GAS FITTER APPRENTICE documented as of this encounter Care Teams Percolator Operator Relationship Specialty Start Date End Date Larry Ya MD [address] [place] [address] PCP - General 12/03/16 Faheem Saxena DO [address] [place] [address] Consulting Physician Gastroenterology 02/26/19 Bryce Baker Jr., DPMagui [address] [address] Referring Physician 02/26/19 Bianca Bartholomew MD [address] [address] Consulting Physician Critical Care Med 04/03/20 documented as of this encounter
--- OUTSIDE RECORDS SUMMARY | 2025-01-10 01:30 | XMS_ITS | Clinical Summary ---
Author Organization [facility] Address [address] [address] Phone Care Team Providers Care Dairy Nutritionist Name Role Phone Larry Ya MD Primary Care Provider [phone] Social History Tobacco Use Types Packs/Day Years Used Date Smoking Tobacco: Never Assessed Sex and Gender Information Value Date Recorded Sex Assigned at Not on file Legal Sex Male 12:28 AM CDT Gender Identity Not on file Sexual Orientation Not on file Plan of Treatment Health Maintenance Due Date Last Done Comments Hepatitis C Virus (HCV) Screening 1969 TdaP Immunization 1969 Hepatitis B Immunization (1 of 3 - 19+ 3-dose series) 02/18/1988 Cologuard 2019 Immunochemical Fecal Occult Blood 2019 Pneumococcal Immunization (5 0+ years) (1 of 1 - PCV) 2019 Zoster Immunization (1 of 2) 2019 PSA Discussion 02/18/2024 Influenza Immunization (#1) 2024 SARS-COV-2 Immunization ( - 2023-25 season) 2024 Colonoscopy 12/11/2028 12/11/2018 Colorectal Cancer Screening 12/11/2028 Respiratory Syncytial Virus (RSV) Immunization (Adult) (1 - 1-dose 75+ series) 02/18/2044 12/11/2018 Meningococcal Immunization (ACWY) Aged Out No longer eligible based on patient's age to complete this topic Pneumococcal Immunization Combined Aged Out No longer eligible based on patient's age to complete this topic Rotavirus Immunization Aged Out No lo nger eligible based on patient's age to complete this topic Procedures Procedure Name Priority Date/Time Associated Diagnosis Comments COLONOSCOPY Routine 12/11/2018 from Last 3 Months or Most Recently Relevant to Health Maintenance Results * COLONOSCOPY (12/11/2018) Faheem Jameson Hemanth DO PROCEDURE/MINOR SURGICAL ORDERA BLES Final Result from Last 3 Months or Most Recently Relevant to Health Maintenance Insurance [facility] Care Teams Dairy Nutritionist Relationship Specialty Start Date End Date Lrary Ya MD [address] [place] [address] PCP - General Internal Medicine 12/14/18
--- OUTSIDE RECORDS SUMMARY | 2025-01-10 01:30 | XMS_ITS | Clinical Summary ---
Author Organization [facility] Address [address] [place] [address] Care Team Providers Care Orthopedic Coder Name Role Phone Felton Larry Abbott MD Primary Care Provider [phone] Faheem Saxena DO Unavailable [phone] Samuel Up, Bryce BENNETT Unavailable Bianca Bartholomew MD Unavailable [phone] Allergies Active Allergy Reactions Criticality Noted Date Comments [place] Oil Unknown Cefaclor Rash Reaction: Rash, , [...] (10MG) by oral route every day 0 Active cyanocobalamin (vitamin B-12) 1,000 mcg tablet take 1 by Oral route one daily 0 Active b complex vitamins (VITAMINS B COMPLEX) [...] CAPSULE BY MOUTH EVERY DAY 30 capsule 11 Active ondansetron (ZOFRAN) 4 mg tablet Take [...] FOR 1 MONTH ADMINISTER INTO EACH NOSTRIL 025 Active semaglutide (Ozempic) 0.25 mg or 0.5 [...] 10/18/2024 Assessment & Plan (10/18/2024 10:35 AM ASPHALT STILL OPERATOR): IMMUNIZATIONS WERE REVIEWED EYE EXAM AND DENTAL UPTODATE TOBACCO ABUSE LOWE DOSE LUNG CT ORDERED DM TYPE 2 GOAL HBAIC IS UNDER 6.5 PERCENT INCREASE OZEMPIC TO 0.5 MG ONCE A WEEK PRIMARY HYPOTRHYORIDISM : NL TSH ASYMTPOMATIC HIV NL CD 4 COUND AND VIRAL LOAD UNDETECTABLE RECTLA EXAM GUAIAIC NEG Acute bronchitis and bronchiolitis 08/15/2024 Assessment & Plan (08/15/2024 7:31 PM ASPHALT STILL OPERATOR): Rsv neg Flu and coviod neg Cxr is neg except for possible acuter bornchitis sinus x ray neg Start tapring dosage of starting at 20 mg po Qday prednsione Penile rash 07/24/2024 Assessment & Plan (07/24/2024 4:54 PM ASPHALT STILL OPERATOR): PAINFUL DDX INCULDE PRIMARY HERPES SIMPLEX ALLERGIC REACTION FROM CODIENE OR LEVAQUIN SWABS WERE RAKEN TODAY VALTREX 1 GM PO TID FOR 7 DAYS TOPICAL NYSTATIN POWEDER FOR THE GROIN Acute cough 07/12/2024 Assessment & Plan (07/12/2024 3:12 PM ASPHALT STILL OPERATOR): Exam is NL Acute bronchitis is suspected Do tussin with codiene one tsp po tid for 7 days 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 FAILED PT 3. 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 NUMBNESS OF THE LEFT [...] GERD (gastroesophageal reflux disease) Nicotine dependence 12/17/2011 Encounters Date Type Department Care Team Description 01/01/2025 Telephone [facility] 1 [facility] [address] [place] [address] Larry Ya MD Med Refill 11/16/2024 Results Follow-Up [facility] 1 [facility] [address] [place] [address] Larry Ya MD Nicotine dependence, cigarettes, uncomplicated 11/12/2024 4:09 PM CDT - 11/12/2024 11:59 PM CDT Hospital Encounter [facility] 1 [place] [address] Nicotine dependence, cigarettes, uncomplicated Discharge Disposition: Discharge to home or self care 11/09/[address] [address] Cathi Rodriguez RN 10/18/2024 9:30 AM ASPHALT STILL OPERATOR Office Visit [facility] [address] [address] Larry Ya MD Colon cancer screening (Primary Dx); Type 2 diabetes mellitus without complication, without long-term current use of insulin (HCC); Cough, unspecified type; Gastroesophageal reflux disease, unspecified whether esophagitis present; Nicotine dependence, cigarettes, uncomplicated; Prostate cancer screening; Routine physical examination; HIV positive, asymptomatic (HCC) from Last 3 Months Immunizations Immunization Administration Dates Next Due Influenza, [...] PPV23 12/15/2011 Td, adsorbed 08/20/2020 Tdap 11/09/2021,05/20/2010 Surgical History Surgery Date Site/Laterality Comments TONSILLECTOMY 1998 Tonsillectomy KNEE ARTHROSCOPY 2005 Arthroscopy knee HERNIA REPAIR 2007 Hernia repair APPENDECTOMY 2001 Appendectomy OTHER SURGICAL HISTORY 2006 eyelid lipoma: lipomectomy OTHER SURGICAL HISTORY 2005 tibial plateau fracture: surgical repair OTHER SURGICAL HISTORY 2001 appendicitis: Appendectomy OTHER SURGICAL HISTORY 2006 incisional hernia: repair OTHER SURGICAL HISTORY 1997 tonsillitis: tonsillectomy OTHER SURGICAL HISTORY 2004 deviated septum: sinus surgery TONSILLECTOMY 1998 Tonsillectomy OTHER SURGICAL HISTORY 2000 lipoma removed rt eye KNEE ARTHROSCOPY 2005 Right Arthroscopy knee TONSILLECTOMY Tonsillectomy HERNIA REPAIR Hernia repair OTHER SURGICAL HISTORY 2005 deviated septum: surgery OTHER SURGICAL HISTORY 2005 tibia fracture: surgical repair OTHER SURGICAL HISTORY 2006 incisional hernia: surgical repair OTHER SURGICAL HISTORY 2012 Carpal tunnel syndrome: Medical History Medical History Date Comments Hypothyroidism hypothyroidism Hx Other Medical hydrocoele - 18 69 Hx Other Medical lipoma Rt eye Hx Other Medical deviated septum repair-2004 Depression Depression Hx Other Medical eyelid lipoma Hx Other Medical tibial plateau fracture Hx Other Medical appendicitis Hx Other Medical incisional darian ia Tonsillitis tonsillitis Hx Other Medical deviated septum Hx Other Medical Headache, migra ine Hx Other Medical 2001 Appendectomy Hx Other Medical 2004 Sinus surgery Hx Other Medical 2000 Lipoma removal right eye Angina pectoris Angina Hx Other Medical tibia fracture Hx Other Medical Carpal tunnel s yndrome; Comments: Larry Ya MD; Outcome: Resolved from Problem List Family History Medical History Relation Name Comments Osteoporosis Father 2 Osteoporosis; Other Father 2 Alive and well; Cancer Maternal Grandfather Cancer; Heart attack Maternal Grandfather Myocard ial infarction; Hypertension Maternal Grandfather Hyperte nsion; Stroke Maternal Grandfather Stroke; Diabetes Mother 2 Diabetes mellit us; Diabetes type II Mother 2 Diabetes -T ype II; Fibromyalgia Mother 2 fibromyalgia; Hypertension Mother 2 Hypertension; Hypothyroidism Mother 2 Hypothyroidis m; Osteoporosis Mother 2 Osteoporosis; Other Mother 2 Alive and well; Coronary artery disease Mother's Brother Coronary artery disease; Seizures Mother's Brother Seizure dis order; Cancer Other Family history of Cancer; Diabetes Other Family history of Diabetes mellitus; Heart disease Other Family history of Heart disease; Hypertension Other Family history of Hypertension; Other Other Family history of diabetes, cancer and arthritis.; Relation Name Status Comments Father 1 Alive Father 2 Maternal Grandfather Mother 1 Alive Mother 2 Mother's Brother Other Social History Tobacco Use Types Packs/Day Years [...] on file Legal Sex Male 4:45 PM ASPHALT STILL OPERATOR Gender Identity Male 04/07/2021 11:57 AM CDT Sexual Orientation Pedraza 08/31/2020 11 :52 AM ASPHALT STILL OPERATOR Obstetrics History Last Filed Vital Signs Vital Sign Reading Time Taken Comments Blood Pressure 128/78 10/18/2024 9:49 AM ASPHALT STILL OPERATOR Pulse 78 10/18/2024 9:49 AM ASPHALT STILL OPERATOR Temperature 36.2 C (97.1 F) 10/18/2024 9:49 AM ASPHALT STILL OPERATOR Respiratory Rate 16 10/18/2024 9:49 AM ASPHALT STILL OPERATOR Oxygen Saturation 96% 10/18/2024 9:49 AM ASPHALT STILL OPERATOR Inhaled Oxygen Concentration - - Weight 100.7 kg (222 lb) 11/12/2024 4:54 PM CDT Height 167.6 cm (5' 6 ) 11/12/2024 4:54 PM CDT Body Mass Index 35.83 11/12/2024 4:54 PM CDT Plan of Treatment Health Maintenance Due Date Last Done Comments HLA B 5701 Typing 1970 Proteinuria screening Urinalysis (UA) 1969 T Spot (quantiferon gold) 1969 Foot Exam 1969 HIV+ Chlamydia and Gonorrhea Screening (Rectal) 02/18/1980 HIV + Chlamydia and Gonorrhe a Screening (Urine) 1982 HIV+ Chlamydia and Gonorrhea Screening (Throat) 1982 Hepatitis C Screening 1982 RPR Screening 1982 G6PD 1987 Hepatitis A Screening 1987 Hepatitis B Screening 1987 Hepatitis A Vaccines (1 of 2 - Risk 2-dose series) 02/18/1988 Hepatitis B Vaccines (1 of 3 - 19+ 3-dose series) 02/18/1988 Zoster Vaccine (1 of 2) 02/18/1988 Pneumococcal vaccine <65 (2 of 2 - PCV) 12/14/2012 12/15/2011 Osteoporosis Screening-Bone Density Scan 2019 Dilated Eye Exam 09/12/2020 09/12/2019 Albumin Creatinine Ratio, Urine 05/16/2024 3 Covid-19 Vaccine (2023-2 5 season) 2024 05/28/2024, 05/28/2024, 08/21/2021, Additional history exists Prostate Cancer Screening-PSA 11/15/2024, 04/14/2021, 09/16/2016, Additional history exists Hemoglobin A1C 10/10/2025 10/10/2024, 03/06, 05/17/2022, Additional history exists Lipid Panel 10/10/2025 10/10/2024, 03/06, 05/16/2023, Additional history exists eGFR 10/10/2025 10/10/2024, 08/0 09/2023, 04/02/2024, Additional history exists Depression Screening 10/18/2025 10/18/2024, 04/27/20 21 Regular Well Visit/Exam 18-64 10/18/2025, 05/31/2023, 05/24/2022, Additional history exists Lung Cancer Screening 11/13/2025 11/12/2024, 10/07/2 021 Colon Cancer Screening-Colonoscopy 12/11/20282018 DTaP/Tdap/Td Vaccine (4 - Td or Tdap) 11/10/2031 11/09/2021, 08/20/2020, 05/20/2010 Influenza Vaccine Completed 05/28/2024, , 06/13/2022, Additional history exists Procedures Procedure Name Priority Date/Time Associated Diagnosis Comments CT LUNG CANCER SCREENING Schedule Routine, Read Routine (OP Routine) 11/12/2024 4:53 PM CDT Nicotine dependence, cigarettes, uncomplicated COMPREHENSIVE METABOLIC PANEL Routine 10/10/2024 9:35 AM ASPHALT STILL OPERATOR Type 2 diabetes mellitus without complication, without long-term current use of insulin (HCC) HEMOGLOBIN A1C Routine 10/10/2024 9:35 AM ASPHALT STILL OPERATOR Type 2 diabetes mellitus without complication, without long-term current use of insulin (HCC) LIPID PANEL Routine 10/10/2024 9:35 AM ASPHALT STILL OPERATOR Multiple-type hyperlipidemia ALBUMIN CREATININE RATIO, URINE Routine 05/16/2023 9:19 AM CDT Type 2 diabetes mellitus without complication, without long-term current use of insulin (HCC) PSA SCREEN Routine 11/15/2022 8:32 AM CDT Routine physical examination Prostate cancer screening HM DIABETES EYE EXAM Routine 09/12/2019 9:28 AM ASPHALT STILL OPERATOR from Last 3 Months or Most Recently [...] Aj Otto M.D. LB: USMAN Report ID: [id number] Reading Location: [id number] Procedure Note Aj Otto MD - 11/15/2024 [...] mm nodule in the left lower lobe () may be within a subsegmental airway but [...] Aj Otto M.D. LB: USMAN Report ID: [id number] Reading Location: [place] [address] [facility] Scar Ya MD IM CT PROCEDURES Final Re sult * (ABNORMAL) Hemoglobin A1c (10/10/2024 9:35 AM ASPHALT STILL OPERATOR) Hgb A1C 6.0(H) <5.7 % of total Hgb [facility] Comment: For someone without known [...] diabetes for children. Blood 10/10/2024 9:35 AM ASPHALT STILL OPERATOR 10/10/2024 9:36 AM ASPHALT STILL OPERATOR Narrative [facility] - 10/12/2024 8:21 AM ASPHALT STILL OPERATOR FASTING:YES FASTING: YES Larry Ya MD LAB BLOOD ORDERABLES Final Result [facility] [address] [place] [address] * (ABNORMAL) Lipid panel (10/10/2024 9:35 AM ASPHALT STILL OPERATOR) Cholesterol 217(H) <200 mg/dL [facility] [...] factors. LDL-C is now calculated using the Casper-Del Valle calculation, which is a validated novel method providing better accuracy than the Friedewald equation in the estimation of LDL-C. Casper SS et al. FRANCISCA. 2013;310(19): 8978-1071 (http://education.Incipient/faq/KJS445) Chol/HDL ratio 6.0(H) <5.0 (calc) [facility] Non-HDL, (LDL+VLDL) 181(H) <130 mg/dL (calc) [facility] Comment: For patients with diabetes plus 1 major ASCVD risk factor, treating to a non-HDL-C goal of <100 mg/dL (LDL-C of <70 mg/dL) is considered a therapeutic option. Blood 10/10/2024 9:35 AM ASPHALT STILL OPERATOR 10/10/2024 9:36 AM ASPHALT STILL OPERATOR Narrative [facility] - 10/12/2024 8:21 AM ASPHALT STILL OPERATOR FASTING:YES FASTING: YES Larry Ya MD LAB BLOOD ORDERABLES Final Result [facility] [address] [place] [address] * (ABNORMAL) Comprehensive metabolic panel (10/10/2024 9:35 AM ASPHALT STILL OPERATOR) Glucose 111(H) 65 - 99 mg/dL [facility] [...] [facility] Blood 10/10/2024 9:35 AM ASPHALT STILL OPERATOR 10/10/2024 9:36 AM ASPHALT STILL OPERATOR Narrative [facility] - 10/12/2024 8:21 AM ASPHALT STILL OPERATOR FASTING:YES FASTING: YES Result [facility] Larry Ya MD LAB BLOOD ORDERABLES Final Result Performing Organization Address [facility]/ZIP Co de Phone Number [facility]ON[facility] [place] [address] [place] [address] * Albumin Creatinine Ratio, Urine (05/16/2023 9:19 AM CDT) Creatinine, ur 110 20 - 320 mg/dL [facility] Microalbumin, ur <0.2 See Note: mg/dL [facility] Comment: Reference Range: Reference Range Not established Microalbumin/creat ratio NOTE <30 mcg/mg creat [facility] Comment: NOTE: The urine albumin value [...] Ya MD LAB URINE ORDERABLES Final Result Performing Organization Address [facility]/ZIP Co de Phone Number [facility] [address] [place] [address] * PSA screen (11/15/2022 8:32 AM CDT) PSA 0.53 < OR = 4.00 ng/mL [facility] Comment: The total PSA value from this assay system is standardized against the WHO standard. The test result will be approximately 20% lower when compared to the equimolar-standardized total PSA ([place]). Comparison of serial PSA results should be [...] Ya MD LAB BLOOD ORDERABLES Final Result [facility] [address] [place] [address] * DIABETES EYE EXAM (09/12/2019 9:28 AM ASPHALT STILL OPERATOR) SCRIBED DIABETIC DILATED EYE EXAM Normal Historical Provider HEALTH MAINTENANCE Final Result from Last 3 Months or Most Recently Relevant to Health Maintenance Insurance [facility] [place] [address] [employer] [place] [employer] PPO [employer] P[employer] ACCESS CHOICE WORKERS COMPENSATION GENERIC Care Teams Orthopedic Coder Relationship Specialty Start Date End Date Larry Ya MD [address] [place] [address] PCP - General 12/03/16 Faheem Saxena DO [address] [place] [address] Consulting Physician Gastroenterology 02/26/19 Bryce Baker Jr., DPM [address] [place] [address] Referring Physician 02/26/19 Bianca Bartholomew MD [address] [facility] [address] [place] [address] Consulting Physician Critical Care Med 04/03/20
[2025-01-10 10:39] VITALS: BP 137/94; PULSE 70; RESP 18; TEMP 36.1; O2SAT 97; BMI 34.7
[2025-01-10] MEDS: LACTATED RINGERS 1,000 ML 150 ML IV CONT (10:49)
--- NOTE | 2025-01-10 11:19 | P.PNAN_ITS ---
Anes - Initial Pre Proc Eval Procedure: Operation Date: 01/10/25 14:00 Proposed Procedures p Esophagogastroduodenoscopy & Colonoscopy - Max Love MD Date/Time: 01/10/25 11:19 Surgeon: Max Love MD Pre Op Diagnosis: Cough, unspecified, GERD, Screening Patient Data Age: 54 Gender: M Height: 1.68 m Weight: 97.6 kg Last Vital Signs Temp 97 F L 01/10/25 10:39 Pulse 70 01/10/25 10:39 Resp 18 01/10/25 10:39 BP 137/94 H 01/10/25 10:39 Pulse Ox 97 01/10/25 10:39 O2 Del Method Room Air 01/10/25 10:39 Allergies Allergy/AdvReac Type Severity Reaction Status Date / Time codeine Allergy Severe Rash Verified 01/10/25 10:38 cefaclor Allergy Unknown Rash Verified 01/10/25 10:38 clarithromycin Allergy Unknown Dyspnea / Verified 01/10/25 10:38 SOB clindamycin Allergy Unknown Rash Verified 01/10/25 10:38 erythromycin base Allergy Unknown Anaphylactic Verified 01/10/25 10:38 Shock Tetracyclines Allergy Unknown Nausea and Verified 01/10/25 10:38 Vomiting Home Medications ?Medication ?Instructions ?Recorded ?Confirmed ?Type buspirone 30 mg tablet 30 mg PO BID 10/05/24 01/10/25 History celecoxib 200 mg capsule 200 mg PO DAILY 10/05/24 01/10/25 History cyclobenzaprine 10 mg tablet 10 mg PO .prn 10/05/24 01/10/25 History emtricitabine 200 mg-tenofovir 1 tablet PO DAILY 10/05/24 01/10/25 History disoproxil fumarate 300 mg tablet (Truvada) levothyroxine 25 mcg capsule 25 mcg PO DAILY 10/05/24 01/10/25 History liothyronine 25 mcg tablet 25 mcg PO DAILY 10/05/24 01/10/25 History omeprazole 20 mg capsule,delayed 20 mg PO DAILY 10/05/24 01/10/25 History release raltegravir 400 mg tablet 400 mg PO BID 10/05/24 01/10/25 History (Isentre) sertraline 100 mg tablet 100 mg PO DAILY 10/05/24 01/10/25 History ipratropium bromide 21 mcg (0.03 2 spray intranasal BID 1 month #30 11/05/24 01/10/25 Rx %) nasal spray mL semaglutide 0.25 mg or 0.5 mg (2 0.5 mg subcut WEEKLY 11/05/24 01/10/25 History mg/3 mL) subcutaneous pen injector (Ozempic) ferrous sulfate 325 mg (65 mg 325 mg PO .twice a week 12/26/24 01/10/25 History iron) tablet (Feosol) fluticasone propionate 50 1 spray intranasal DAILY PRN 12/26/24 12/26/24 History mcg/actuation nasal allergy symptoms spray,suspension (24 Hour Allergy Relief) magnesium 250 mg tablet 250 mg PO DAILY 12/26/24 01/10/25 History mecobalamin (vitamin B12) 1,000 3,000 mcg PO DAILY 12/26/24 01/10/25 History mcg chewable tablet (B12 Active) Patient hx anesthesia problems: none Family hx anesthesia problems: none Results Review: All pre-operative results and documents have been reviewed as part of the pre- operative evaluation. [facility] Past Medical History Medical History Sinus headache Deviated nasal septum Posterior rhinorrhea Chronic sinusitis Social History Social History Social History: Caffeine- daily Smoking packs per day: 1 Smoking cigarettes per day: 20.0 Years smoked: 33 Smoking pack-years: 33.00 Smoking status: Current every day smoker Tobacco type: cigarettes Alcohol intake: current Drinks per week: 2 Alcohol use details: socially Substance use: never Substance use type: does not use Living arrangements: with family Spiritual care concerns: No Anes - Eval Final PreProcedure Day of Procedure 01/10/25 11:19 Patient weight: obese Lungs: normal air movement Airway: Mallampati scale class II Neurological: alert and oriented Last oral intake: >/= 8 hours ASA classification: III Emergent: no Anesthetic plan: proceed Anesthesia type and monitoring: general GIVS and standard monitoring Results Review: All pre-operative results and documents have been reviewed as part of the pre- operative evaluation. Hypothyroidism, BMI 34, SONU on CPAP, smoker 1 ppd for 33 years, smoked at 930 am. Overall active w 1-2 fos, no cp. Informed Consent: The patient's anesthetic plan and its attendant risks and benefits were discussed with the patient/family/POA. Questions were solicited and answers provided to the satisfaction of the patient/family/POA.
--- NOTE | 2025-01-10 11:23 | P.HP_ITS ---
History of Present Illness History of Present Illness Consent: Risks, benefits, and alternatives have been discussed and questions answered. Patient agrees to proceed with procedure. Chief complaint: Cough, unspecified, GERD, Screening Narrative: Luis Adrian is a 54 year old male with cough seeing ENT and gerd on prilosec, last egd and colonoscopy 5 years ago (aunt with colon cancer) Review of Systems 2 Review of Systems: All systems reviewed & are unremarkable except as noted in HPI and below PMFSH Past Medical History Medical History (Updated 01/10/25 @ 11:24 by Max Love MD) Family history of colon cancer GERD (gastroesophageal reflux disease) Cough Sinus headache Deviated nasal septum Posterior rhinorrhea Chronic sinusitis Social History Social History Social History: Caffeine- daily Smoking packs per day: 1 Smoking cigarettes per day: 20.0 Years smoked: 33 Smoking pack-years: 33.00 Smoking status: Current every day smoker Tobacco type: cigarettes Alcohol intake: current Drinks per week: 2 Alcohol use details: socially Substance use: never Substance use type: does not use Living arrangements: with family Spiritual care concerns: No Meds Home Medications and Allergies Home Medications ?Medication ?Instructions ?Recorded ?Confirmed ?Type buspirone 30 mg tablet 30 mg PO BID 10/05/24 01/10/25 History celecoxib 200 mg capsule 200 mg PO DAILY 10/05/24 01/10/25 History cyclobenzaprine 10 mg tablet 10 mg PO .prn 10/05/24 01/10/25 History emtricitabine 200 mg-tenofovir 1 tablet PO DAILY 10/05/24 01/10/25 History disoproxil fumarate 300 mg tablet (Truvada) levothyroxine 25 mcg capsule 25 mcg PO DAILY 10/05/24 01/10/25 History liothyronine 25 mcg tablet 25 mcg PO DAILY 10/05/24 01/10/25 History omeprazole 20 mg capsule,delayed 20 mg PO DAILY 10/05/24 01/10/25 History release raltegravir 400 mg tablet 400 mg PO BID 10/05/24 01/10/25 History (Isentre) sertraline 100 mg tablet 100 mg PO DAILY 10/05/24 01/10/25 History ipratropium bromide 21 mcg (0.03 2 spray intranasal BID 1 month #30 11/05/24 01/10/25 Rx %) nasal spray mL semaglutide 0.25 mg or 0.5 mg (2 0.5 mg subcut WEEKLY 11/05/24 01/10/25 History mg/3 mL) subcutaneous pen injector (Ozempic) ferrous sulfate 325 mg (65 mg 325 mg PO .twice a week 12/26/24 01/10/25 History iron) tablet (Feosol) fluticasone propionate 50 1 spray intranasal DAILY PRN 12/26/24 12/26/24 History mcg/actuation nasal allergy symptoms spray,suspension (24 Hour Allergy Relief) magnesium 250 mg tablet 250 mg PO DAILY 12/26/24 01/10/25 History mecobalamin (vitamin B12) 1,000 3,000 mcg PO DAILY 12/26/24 01/10/25 History mcg chewable tablet (B12 Active) Allergies Allergy/AdvReac Type Severity Reaction Status Date / Time codeine Allergy Severe Rash Verified 01/10/25 10:38 cefaclor Allergy Unknown Rash Verified 01/10/25 10:38 clarithromycin Allergy Unknown Dyspnea / Verified 01/10/25 10:38 SOB clindamycin Allergy Unknown Rash Verified 01/10/25 10:38 erythromycin base Allergy Unknown Anaphylactic Verified 01/10/25 10:38 Shock Tetracyclines Allergy Unknown Nausea and Verified 01/10/25 10:38 Vomiting Vital Signs Vital Signs - 24 hr 01/10/25 10:39 Temperature 97 F L Pulse Rate 70 Respiratory Rate 18 Blood Pressure 137/94 H Pulse Oximetry 97 Oxygen Delivery Room Air Exam Const: General: comfortable and no acute distress HENMT: Face/Nose/Sinus: Normal nares present Eyes: General: appearance normal, both eyes and all related structures Neck: Neck: no JVD Resp: Auscultation: clear to auscultation bilaterally Cardio: Rate: regular rate Rhythm: regular rhythm GI: Inspection: non-distended GI Palp: Yes Soft to palpation Skin: General skin exam: normal color Neuro: General: gait normal Speech: normal speech Extrem: General: normal to inspection Psych: Mental Status: mental status grossly normal Assessment and Plan Assessment and plan (1) Cough: Code(s): R05.9 - Cough, unspecified Status: Acute Assessment and Plan: egd (2) GERD (gastroesophageal reflux disease): Code(s): K21.9 - Gastro-esophageal reflux disease without esophagitis Status: Acute (3) Family history of colon cancer: Code(s): Z80.0 - Family history of malignant neoplasm of digestive organs Status: Acute Assessment and Plan: colonoscopy
[2025-01-10] MEDS: BENZOCAINE (*SP) 60 ML SPRAY CAN (HURRICAINE) 1 SPRAY MUCOUS MEM (11:27)
--- NOTE | 2025-01-10 11:35 | SUR.OPER ---
EGD: [id number] Colon: [id number]
[2025-01-10 11:46] VITALS: BP 110/77; PULSE 59; RESP 19; O2SAT 92
[2025-01-10 11:56] VITALS: BP 109/75; PULSE 57; RESP 17; O2SAT 92
[2025-01-10 12:14] VITALS: BP 114/75; PULSE 58; RESP 17; O2SAT 99
== END 2025-01-10 12:17 | disposition home or self-care (01) ==
PROVIDERS: PCP Internal Medicine Infectious Disease; Referring Provider Internal Medicine Infectious Disease; Visit Provider Internal Medicine Gastroenterology
PROC: 0DJ08ZZ Inspection of Upper Intestinal Tract, Via Natural or Artificial Opening Endoscopic (ICD-10-PCS; CPT 45378; principal; 2025-01-10 14:00)
DX: Z12.11 Encounter for screening for malignant neoplasm of colon (principal); K52.9 Noninfective gastroenteritis and colitis, unspecified; K64.8 Other hemorrhoids; Z80.0 Family history of malignant neoplasm of digestive organs; K21.9 Gastro-esophageal reflux disease without esophagitis; K29.70 Gastritis, unspecified, without bleeding; F17.210 Nicotine dependence, cigarettes, uncomplicated; E66.9 Obesity, unspecified; Z68.34 Body mass index [BMI] 34.0-34.9, adult
CPT/HCPCS: 45380; 43239; 88305; J2003; J2704; J7120